=== PATIENT | male | born 1975 | race Caucasian/White ===

== ENCOUNTER 2020-09-28 07:47 | Day surgery (SDC) | payer SELFPAY ==
[~2020-09-28] VITALS: Ht 167.6 cm; Wt 73.2 kg
[2020-09-28] VITALS (7 sets, daily range): BP systolic 104–124; BP diastolic 67–82; PULSE 83–94; TEMP 97.7–97.8
[~2020-09-28 07:47] MED LIST: AEROBID INHALER7 GM IH; CYMBALTA; ERYTHROCIN STE250 M1 PO; PROVENTIL0.09 MG/A1 IH; SEROQUEL; [UNRECOGNIZED DRUG - OTHER]
[2020-09-28] MEDS ORDERED: PULMICORT0.25 MG/2 IH (08:25)
[2020-09-28] MEDS ORDERED: PROVENTIL0.09 MG/A1 IH (08:26)
[2020-09-28] MEDS ORDERED: ULTRAM 50MG TAB50 MG PO (12:38)
--- NOTE | 2020-09-28 13:15 | NUR ---
Patient returns to room 6 per cart from PACU accompained by Khushboo SALCIDO and is awake and alert. Temp 97.7 and room air sats 97%. Incisions x3 dry on the left side of abdomen covered with exofin dressing. Sipping on Pepsi. Siderails up x2 and call light in reach. Call light in reach. Allowed to rest.
--- NOTE | 2020-09-28 13:30 | NUR ---
Room air sats 93%. Resting and offers no complaints.
--- NOTE | 2020-09-28 13:45 | NUR ---
Continues to rest without complaints.
--- NOTE | 2020-09-28 14:00 | NUR ---
Was medicated with [place] 5mg one at at 1356 for incisional pain.
--- NOTE | 2020-09-28 14:15 | NUR ---
Tolerated applesauce and denies nausea.
--- NOTE | 2020-09-28 14:25 | NUR ---
Assisted up to the bathroom and gait is steady. Voids and returns to room. Tolerated activity well.
--- NOTE | 2020-09-28 14:50 | NUR ---
Dismissal instructions given and voices understanding of home cares. Instructed that Ultram was sent to the pharmacy in [place].
--- NOTE | 2020-09-28 14:55 | NUR ---
Dismissed to home driven by mother and taken to the front door per wheelchair and assisted into vehicle with instructions in hand.
== END 2020-09-28 15:55 | disposition home or self-care (01) ==
LOC: SDCO 07:47
DX: K43.9 Ventral hernia without obstruction or gangrene (principal); J45.909 Unspecified asthma, uncomplicated; F32.9 Major depressive disorder, single episode, unspecified; Z90.89 Acquired absence of other organs; Z20.822 Contact with and (suspected) exposure to COVID-19; Z79.899 Other long term (current) drug therapy
CPT/HCPCS: C1781; J0690; J1885; J2405; J2704; J3010; J7120